=== PATIENT | female | born 1985 | race Two or more races ===

== ENCOUNTER 2022-02-10 08:32 | Outpatient (CLI) | payer BC, SELFPAY ==
[2022-02-10 10:31] LABS: Cholesterol* 219 mg/dL (90-199); HDL Cholesterol* 63 mg/dL (>=50); LDL Cholesterol Calculated 130 mg/dL (<100); Triglycerides* 131 mg/dL (40-149)
== END 2022-02-10 08:33 | disposition home or self-care (01) ==
PROVIDERS: PCP Family Medicine; Visit Provider Registered Nurse
DX: Z01.419 Encounter for gynecological examination (general) (routine) without abnormal findings (principal); N63.0 Unspecified lump in unspecified breast; N64.4 Mastodynia; Z12.4 Encounter for screening for malignant neoplasm of cervix; Z11.3 Encounter for screening for infections with a predominantly sexual mode of transmission; Z13.6 Encounter for screening for cardiovascular disorders; Z13.1 Encounter for screening for diabetes mellitus
CPT/HCPCS: 80061; 87624; 88175

== ENCOUNTER 2022-02-12 08:47 | Outpatient (CLI) | payer BC, SELFPAY ==
--- NOTE | 2022-02-12 08:45 | CRLHL7_ITS ---
For Patients: As a result of the Century Cures Act, medical imaging exams and procedure reports are released immediately into your electronic medical record. You may view this report before your referring provider. If you have questions, please contact your health care provider. RIGHT UNILATERAL DIAGNOSTIC MAMMOGRAM WITH COMPUTER-AIDED DETECTION AND TOMOSYNTHESIS, 02/12/2022 RIGHT BREAST ULTRASOUND, 02/12/2022 HISTORY: This is a 36-year-old with RIGHT breast lump. TECHNIQUE: RIGHT CC and MLO views, as well as RIGHT CC spot compression, MLO spot compression, and RIGHT open ML views were obtained. These mammographic images have been obtained using full-field digital technique. These mammographic images were interpreted with the benefit of computer-aided detection. Breast Tomosynthesis was used in this interpretation. COMPARISON FILM: Ultrasound of the RIGHT breast from 02/21/2021. BREAST COMPOSITION: The breasts are heterogeneously dense, which may obscure small masses. FINDINGS: There is a round mass in the RIGHT breast at the 1 o???clock position. Previous ultrasound demonstrated this to represent a cyst. There are, otherwise, no suspicious findings seen. Ultrasound over the patient???s lump demonstrates an underlying 1.2 x 0.8 x 1.4 cm cyst corresponding to the patient???s lump at the 9 o???clock position 6 cm from the nipple. Cyst aspiration was offered to the patient. The patient did not wish to have this performed at this time. IMPRESSION: Patient???s lump corresponds to a cyst in the 9 o???clock position 6 cm from the nipple. No findings for malignancy. Would recommend start of yearly screening mammography at age 42. ASSESSMENT: BI-RADS Category 2: Benign A lay language report of this examination will be provided to the patient. Jaylyn Santana M.D. Diagnostic/Breast Radiologist [email or web address] MADDIE/[email or web address]/Dictated by: Jaylyn Santana MD @ 02/12/2022 10:32:00 AM (Electronically Signed)
--- NOTE | 2022-02-12 09:15 | CRLHL7_ITS ---
For Patients: As a result of the Cures Act, medical imaging exams and procedure reports are released immediately into your electronic medical record. You may view this report before your referring provider. If you have questions, please contact your health care provider. PLEASE SEE DIGITAL DIAGNOSTIC RIGHT MAMMOGRAM OF SAME DAY CRL:[email or web address]/Dictated by: Jaylyn Santana MD @ 02/12/2022 10:32:00 AM (Electronically Signed)
== END 2022-02-12 08:48 | disposition home or self-care (01) ==
PROVIDERS: PCP Family Medicine; Visit Provider Registered Nurse
DX: N63.10 Unspecified lump in the right breast, unspecified quadrant (principal); N64.4 Mastodynia
CPT/HCPCS: 76641; 77065; G0279

== ENCOUNTER 2023-10-16 21:16 | Emergency (ER) | payer BC, SELFPAY ==
[2023-10-16 21:20] VITALS: BP 124/77; PULSE 81; RESP 18; TEMP 36.9; O2SAT 100; BMI 21.1
--- NOTE | 2023-10-16 21:48 | ED_ITS ---
HPI - General Adult General Chief complaint: Edema Stated complaint: painful Swollen upper lip Time Seen by Provider: 10/16/23 21:23 Source: patient Mode of arrival: ambulatory Limitations: no limitations History of Present Illness HPI narrative: 38-year-old female coming in today complaining of a swollen and painful upper lip that started 2 days ago. It started after she when out to eat. She is concerned because she has a chronic small pimple just at the base of the columella. She states that periodically this pimple will filled with pus and she pops it and it drains and then it goes away. She was seen by the urgent care provider yesterday who diagnosed her with an abscess of the upper lip and put her on Bactrim. She states that it is slightly more swollen today than yesterday and continues to be painful. She denies any systemic symptoms. She has not had any drainage from the area recently. She does not take any medications. She denies swelling of the tongue or the throat. She denies difficulty breathing or swallowing. No changes in her voice. Related Data Previous Rx's Medication Instructions Recorded sulfamethoxazole 800 1 tab PO BID 7 days #14 tabs 10/15/23 mg-trimethoprim 160 mg tablet Allergies Allergy/AdvReac Type Severity Reaction Status Date / Time No Known Allergies Allergy Unverified 10/15/23 09:50 Review of Systems Status of ROS: Reports: 10 or more systems reviewed and unremarkable except as noted in History and below [facility] Medical History ?Z34.90 - Encounter for supervision of normal , unspecified, unspecified trimester (ICD-10) Family History Uncle Diabetes Maternal Grandmother Heart disease Social History Narrative: Exercises regularly [id number] (1 child originally from [place]) Non-smoker Rarely consumes alcohol Little interest or pleasure in doing things: not at all Feeling down, depressed, or hopeless: not at all Exam Narrative: Exam Narrative: Well-nourished well-developed patient in no acute distress. Alert and oriented. Answers questions appropriately. Mood and affect are appropriate. Thoughts are goal oriented and rational. No tangential or magical thinking noted. Patient speaks in full sentences without needing to catch her breath. HEENT: Normocephalic atraumatic. Pupils are equally round reactive to light. Extraocular muscles are intact. Conjunctivae are moist without any icterus noted. Moist mucous membranes. Posterior pharynx is normal. Neck is soft without any lymphadenopathy or thyromegaly. No masses are appreciated. Upper lip is markedly swollen. She has swelling that extends into the philtrum. She has no swelling of the tongue. The posterior pharynx does not have any swelling. The soft palate is without swelling. Uvula appears normal. Nares appear normal. There is no areas of fluctuance consistent with an abscess. There is no purulent drainage noted anywhere. There is no erythema. The area is not hot. Cardiovascular: Regular rate and rhythm. Lungs: Clear to auscultation bilaterally. Skin: Well perfused without any obvious rashes. Const: Vital Signs, click to edit/add: Vital Signs - 24 hr 10/16/23 21:20 Temperature 98.4 F Pulse Rate [Left P ulse Oximeter] 81 Respiratory Rate 18 Blood Pressure [Ri ght Upper Arm] 124/77 Pulse Oximetry 100 Oxygen Delivery Me thod Room Air Course Course ED Course: 10 mg of IM Decadron was given while she was here. Vital Signs Vital signs: Initial Vital Signs Temperature 98.4 F 10/16/23 21:20 Temperature Source Temporal Artery Scan 10/16/23 21:20 Pulse Rate 81 10/16/23 21:20 Pulse Rhythm Regular 10/16/23 21:20 Respiratory Rate 18 10/16/23 21:20 Blood Pressure 124/77 10/16/23 21:20 Blood Pressure Mean 92 10/16/23 21:20 Blood Pressure Position Sitting 10/16/23 21:20 Pulse Oximetry 100 10/16/23 21:20 Oxygen Delivery Method Room Air 10/16/23 21:20 Vital Signs Temperature 98.4 F 10/16/23 21:20 Pulse Rate 81 10/16/23 21:20 Respiratory Rate 18 10/16/23 21:20 Blood Pressure 124/77 10/16/23 21:20 Pulse Oximetry 100 10/16/23 21:20 Oxygen Delivery Method Room Air 10/16/23 21:20 Temperature 98.4 F 10/16/23 21:20 Pulse Rate 81 10/16/23 21:20 Respiratory Rate 18 10/16/23 21:20 Blood Pressure 124/77 10/16/23 21:20 Pulse Oximetry 100 10/16/23 21:20 Oxygen Delivery Method Room Air 10/16/23 21:20 Medical Decision Making MDM Narrative Medical decision making narrative: 38-year-old female with with what appears to be angioedema. Do not see any evidence of infection on her physical examination today. Want her to stop her Bactrim. Start daily Benadryl. Follow-up with primary care on Wednesday. Discharge Plan Discharge Clinical Impression: Angioedema Patient Disposition: Home, Self-Care Condition: Stable Additional Instructions: You appear to have something called angioedema which is a swelling of the lips, commonly the upper lip. This is usually a reaction to something. I recommend you start taking daily Benadryl 25 mg once in the morning and once in the evening. If it makes you too sleepy than just take 2 tablets in the evening. Do this for the next 3 days. This medication can be purchased [id number]. The swelling can continue for many more days before it gets better. Return to the ER if you develop swelling of the tongue or the back of the throat, if you develop any difficulty breathing or swallowing. I do recommend you follow-up with your primary care provider 1st thing on Wednesday. Prescriptions: No Action sulfamethoxazole-trimethoprim 800-160 mg tablet 1 tab PO BID 7 Days Qty: 14 0RF Follow Up/Referrals: Shante Lorenz MD [Primary Care Provider] - Stand Alone Forms: [place] Info Instructions
[2023-10-16] MEDS: dexAMETHasone 10 MG/ML inj IM (22:11)
== END 2023-10-16 22:12 | disposition home or self-care (01) ==
PROVIDERS: Emergency Provider Family Medicine; PCP Family Medicine
DX: T78.3XXA Angioneurotic edema, initial encounter (principal)
CPT/HCPCS: 96372; 99283; 99284; J1100

== ENCOUNTER 2023-10-19 08:10 | Outpatient (CLI) | payer BC, SELFPAY | END 2023-10-19 08:11 | disposition home or self-care (01) | LOC: NFLDREF 08:10 | PROVIDERS: PCP Family Medicine; Visit Provider Family Medicine | DX: L02.01 Cutaneous abscess of face (principal) | CPT/HCPCS: 87070 ==

== ENCOUNTER 2024-05-19 15:32 | Outpatient (CLI) | payer BC, SELFPAY ==
[2024-05-19 17:53] LABS: Bacterial Vaginosis* Negative (Negative); Candida glab/krus NOT DETECTED (No Detected); Candida species NOT DETECTED (No Detected); Trichomonas vaginalis NOT DETECTED (No Detected)
[2024-05-19 18:22] LABS: Chlamydia DNA Amplified* NOT DETECTED (No Detected); GC DNA Amplified* NOT DETECTED (No Detected)
== END 2024-05-19 15:33 | disposition home or self-care (01) ==
PROVIDERS: PCP Family Medicine; Visit Provider Registered Nurse
DX: N89.8 Other specified noninflammatory disorders of vagina (principal)
CPT/HCPCS: 81513; 87086; 87481; 87491; 87591; 87661